=== PATIENT | male | born 1940 | race Caucasian/White ===

== ENCOUNTER 2016-12-12 14:11 | Emergency (ER) | payer OTHER ==
[~2016-12-12] VITALS: Ht 182.9 cm; Wt 126.6 kg
[2016-12-12] MEDS ORDERED: IV NS 0.9% 1,000 ML BAG IV ONE (14:30)
[2016-12-12] MEDS ORDERED: IV NS 0.9% 1,000 ML ONE (14:31)
[2016-12-12] MEDS ORDERED: IV SET PRIMARY PUMP SET 1 EA INFUS.SET MC ONE ×2 (14:31→15:02)
[2016-12-12 14:50] LABS: KETONES,URINE Negative (NEGATIVE); LEUKOCYTE ESTERASE ,URINE Moderate (NEGATIVE); PH,URINE 7.5 (5.0-8.0)
[2016-12-12 14:57] LABS: BASOPHILS % (AUTO) 0.6 % (0.0-2.0); DIFF TOTAL % 100 %; EOSINOPHILS # (AUTO) 0.4 /CMM (0.0-0.7); HEMATOCRIT 43 % (39-51); HEMOGLOBIN 14.3 g/dL (13.5-17.5); LYMPHOCYTES # (AUTO) 1.3 /CMM (0.8-4.8); LYMPHOCYTES % (AUTO) 18.2 % (20.0-44.0); MEAN CORPUSCULAR HEMOGLOBIN 30 PG (26.0-33.0); MEAN CORPUSCULAR HGB CONC 34 g/dl (31.0-36.0); MEAN CORPUSCULAR VOLUME 89 fL (80-96); MONOCYTES # (AUTO) 0.4 /CMM (0.1-1.30); MONOCYTES % (AUTO) 5.5 % (2.0-12.0); NEUTROPHILS % (AUTO) 70.7 % (43.0-81.0); PLATELET COUNT (AUTO) 216 /CMM (150-450); RED BLOOD CELL COUNT(AUTO) 4.78 MIL/uL (4.5-6.0); WHITE BLOOD COUNT (AUTO) 7.1 K/uL (4.3-11.0)
[2016-12-12] MEDS ORDERED: CALC500T52 PO (14:57)
[2016-12-12] MEDS ORDERED: CHOL400T11 PO (14:57)
[2016-12-12] MEDS ORDERED: NPH,100V SQ (14:57)
[2016-12-12] MEDS ORDERED: B CO1TAB4 PO (14:57)
[2016-12-12] MEDS ORDERED: SPIR25TA4 PO (14:57)
[2016-12-12] MEDS ORDERED: CARV12.52 PO (14:57)
[2016-12-12] MEDS ORDERED: BUSP10TA3 PO (14:57)
[2016-12-12] MEDS ORDERED: SIMV40TA5 PO (14:57)
[2016-12-12] MEDS ORDERED: FLUO40CA49 PO (14:57)
[2016-12-12] MEDS ORDERED: ASPI-991 PO (14:57)
[2016-12-12] MEDS ORDERED: WARF2TAB6 PO (14:57)
[2016-12-12] MEDS ORDERED: DOCU-270 PO (14:57)
[2016-12-12] MEDS ORDERED: MULT-24 PO (14:57)
[2016-12-12 14:58] LABS: ADD UA MICROSCOPIC YES
[2016-12-12] MEDS ORDERED: CEFTRIAXONE 1GM BAG (ER ONLY) 50 ML IV ONE ×2 (15:00→15:02)
[2016-12-12 15:02] LABS: ADD URINE CULTURE NO
[2016-12-12 15:05] LABS: INR 2.52 (0.87-1.13); PROTHROMBIN TIME 26.5 SECS (9.5-12.7)
[2016-12-12 15:07] LABS: TROPONIN I 0.044 ng/mL (0.00-0.056)
[2016-12-12 15:19] LABS: POTASSIUM 4.4 mmol/L (3.5-5.1)
[2016-12-12 15:41] LABS: BILIRUBIN,DIRECT 0.1 mg/dL (0.0-0.2); BILIRUBIN,TOTAL 0.4 mg/dL (0.2-1.0); CALCIUM, SERUM 10.1 mg/dL (8.5-10.1); TOTAL PROTEIN, SERUM 7.6 g/dL (6.4-8.2)
[2016-12-12 15:47] LABS: INDIRECT BILIRUBIN 0.3 mg/dL (0.0-1.1)
[2016-12-12] MEDS ORDERED: ASPIRIN 325 MG TABLET PO ONE (16:00)
[2016-12-12] MEDS ORDERED: ASPIRIN 325 MG TABLET ONE (16:02)
[2016-12-12 18:45] VITALS: BP 157/77
== END 2016-12-12 18:48 | disposition short-term general hospital (02) ==
LOC: ER 14:15
DX: R41.82 Altered mental status, unspecified (principal); N39.0 Urinary tract infection, site not specified; I10 Essential (primary) hypertension; E11.9 Type 2 diabetes mellitus without complications; I50.9 Heart failure, unspecified; E78.00 Pure hypercholesterolemia, unspecified
CPT/HCPCS: 36415; 70450; 71010; 80048; 80076; 81001; 82140; 82962; 83605; 84484; 85025; 85730; 87040 ×2; 87077; 87081; 87086; 87186 ×2; 93005; 96360; 96365; 99285; A4606; J0696; J7030; 81000-TC; Z7610